=== PATIENT | female | born 1945 | race Caucasian/White ===

== ENCOUNTER → 2021-11-26 | Outpatient (CLI) | payer MEDICARE, BC, SELFPAY ==
--- NOTE | 2021-11-26 13:09 | MRI_ITS ---
STUDY: MRI BRAIN WITHOUT CONTRAST REASON FOR EXAM: Female, 76 years old. Dementia; Parkinson''s disease TECHNIQUE: Standardized multiplanar fat and water weighted pulse sequences were obtained. COMPARISON: None. FINDINGS: Moderate cortical and central atrophy. Moderate chronic microvascular ischemic change periventricular white matter. No evidence of midline shift. No evidence of acute intra or extra-axial hemorrhage. Normal bilateral basal ganglia. Normal thalami. There is no extra-axial fluid accumulation. Normal flow voids within the major intracranial circulation suggesting patency by spin echo criteria. Normal sella turcica, pituitary gland, infundibular stalk, optic chiasm and hypothalamus. Normal tectal plate and pineal gland. Normal midbrain, michi and medulla. Mild cerebellar atrophy. Normal bilateral temporal bones. Normal bilateral internal auditory canals. No demonstrated orbital abnormality, within the constraints of a routine brain study. Fluid right maxillary sinus consistent with sinusitis. Normal calvarium and skull base. Normal visualized soft tissue structures. Normal visualized upper cervical spine. MRI/Brain without Contrast IMPRESSION: Moderate cortical and central atrophy, mild cerebellar atrophy, moderate chronic microvascular ischemic change. Acute right maxillary sinusitis. Electronically Signed: Chandrakant Marroquin MD, REGINA at 15:02 EDT ,
[2021-11-26 13:24] LABS: Hematocrit 42.3 % (37-47); Hemoglobin 14.2 g/dL (12.0-15.0); Mean Corp Hgb Conc 33.6 g/dL (32-36); Mean Corpuscular Hgb 32.9 pg (27.0-32.0); Mean Corpuscular Volume 98.1 fL (81-99); Mean Platelet Vol. 8.9 fl (6.2-12.0); Platelet Count 244 K/mm3 (150-450); RBC Distribution Width SD 46.9 fl (35.1-43.9); Red Blood Count 4.31 M/mm3 (4.2-5.4); White Blood Count 6.3 K/mm3 (4.4-11.0)
[2021-11-26 13:48] LABS: Vitamin B12 1419 pg/mL (211-911)
[2021-11-26 14:25] LABS: AST(SGOT) 18 U/L (15-37); Alanine Aminotransfer ALT/SGPT 13 U/L (13-56); Albumin, Serum 3.9 g/dL (3.2-5.0); Alkaline Phosphatase 54 U/L (45-117); Anion Gap 4 (5-15); BUN 24 mg/dL (7-18); BUN/Creat Ratio 23.1 RATIO (10-20); Calcium,Total 10.2 mg/dL (8.5-10.1); Chloride 107 mmol/L (98-107); Creatinine, Serum 1.04 mg/dL (0.55-1.02); EST Glomerular Filtration Rate 55 mL/min (>60); Est Glom Filt Rate - Afr Amer 66 mL/min (>60); Globulin 4.1 g/dL (2.2-4.2); Glucose 107 mg/dL (74-106); Sodium Level 141 mmol/L (136-145); Thyroid Stim Hormone (TSH) 1.03 uIU/mL (0.358-3.74)
[2021-11-29 08:33] LABS: Vitamin B1, Thiamine 190.2 nmol/L (66.5-200.0)
[2021-11-30 13:51] LABS: Vitamin D 1,25-Dihydroxy 16.9 pg/mL (24.8-81.5)
== END | disposition home or self-care (01) ==
PROVIDERS: PCP Family Medicine; Referring Provider Psychiatry & Neurology Neurology; Visit Provider Psychiatry & Neurology Neurology
DX: F03.90 Unspecified dementia, unspecified severity, without behavioral disturbance, psychotic disturbance, mood disturbance, and anxiety (principal); G20 Parkinson's disease; M85.80 Other specified disorders of bone density and structure, unspecified site
CPT/HCPCS: 36415; 70551; 80053; 82607; 82652; 82746; 84425; 84443; 85027

== ENCOUNTER → 2023-04-20 | Outpatient (CLI) | payer MEDICARE, BC, SELFPAY ==
[2023-04-20 13:07] LABS: Anion Gap 5 (5-15); BUN 21 mg/dL (7-18); BUN/Creat Ratio 23.8 RATIO (10-20); Calcium,Total 9.4 mg/dL (8.5-10.1); Chloride 108 mmol/L (98-107); Creatinine, Serum 0.88 mg/dL (0.55-1.02); EST Glomerular Filtration Rate 66 mL/min (>60); Est Glom Filt Rate - Afr Amer 80 mL/min (>60); Glucose 111 mg/dL (74-106); Potassium 3.8 mmol/L (3.5-5.1); Sodium Level 142 mmol/L (136-145)
[2023-04-23 12:09] LABS: Vitamin D 1,25-Dihydroxy 24.9 pg/mL (24.8-81.5)
== END | disposition home or self-care (01) ==
PROVIDERS: PCP Family Medicine; Referring Provider Psychiatry & Neurology Neurology; Visit Provider Psychiatry & Neurology Neurology
DX: G31.84 Mild cognitive impairment of uncertain or unknown etiology (principal); E55.9 Vitamin D deficiency, unspecified
CPT/HCPCS: 36415; 80048; 82652

== ENCOUNTER → 2024-05-11 | Outpatient (CLI) | payer MEDICARE, BC, SELFPAY ==
[2024-05-11 12:44] LABS: Hematocrit 42.3 % (37-47); Hemoglobin 14.1 g/dL (12.0-15.0); Mean Corp Hgb Conc 33.3 g/dL (32-36); Mean Corpuscular Hgb 32.2 pg (27.0-32.0); Mean Corpuscular Volume 96.6 fL (81-99); Platelet Count 285 K/mm3 (150-450); RBC Distribution Width CV 13.3 % (11.6-14.6); RBC Distribution Width SD 47.7 fl (35.1-43.9); Red Blood Count 4.38 M/mm3 (4.2-5.4); White Blood Count 6.2 K/mm3 (4.4-11.0)
[2024-05-11 14:16] LABS: ALB/GLOB Ratio 1.3 RATIO (0.9-2.4); AST(SGOT) 25 U/L (<=31); Alanine Aminotransfer ALT/SGPT 23 U/L (<=34); Albumin, Serum 4.3 g/dL (3.4-4.8); Alkaline Phosphatase 60 U/L (35-104); Anion Gap 15 (5-15); BUN 21 mg/dL (4-19); BUN/Creat Ratio 20.4 RATIO (10-20); Carbon Dioxide 21.3 mmol/L (21.0-32.0); Chloride 104 mmol/L (98-108); Creatinine, Serum 1.02 mg/dL (0.70-1.20); EST Glomerular Filtration Rate 57 (>60); Globulin 3.3 g/dL (2.2-4.2); Glucose 105 mg/dL (70-99); Potassium 3.9 mmol/L (3.3-5.1); Protein, Total 7.6 g/dL (5.9-8.4); Sodium Level 140 mmol/L (133-145); Total Bilirubin 0.34 mg/dL (0.00-1.30)
[2024-05-16 13:08] LABS: Vitamin D 1,25-Dihydroxy 23.2 pg/mL (24.8-81.5)
== END | disposition home or self-care (01) ==
LOC: MTLAB 09:45
PROVIDERS: PCP Family Medicine; Referring Provider Psychiatry & Neurology Neurology; Visit Provider Psychiatry & Neurology Neurology
DX: G31.84 Mild cognitive impairment of uncertain or unknown etiology (principal); E55.9 Vitamin D deficiency, unspecified
CPT/HCPCS: 36415; 80053; 82652; 84443; 85027

== ENCOUNTER 2024-07-03 13:04 | Emergency (ER) | payer MEDICARE, BC, SELFPAY ==
[2024-07-03 13:05] VITALS: BP 111/57; PULSE 100; RESP 18; TEMP 36.9; O2SAT 100
[2024-07-03 13:18] VITALS: BMI 20.5
--- NOTE | 2024-07-03 13:35 | EX.ED.DYSGE1 ---
HPI History of Present Illness Chief Complaint: Weakness Narrative Narrative: Chief complaint and HPI: Weakness. 78-year-old female with past medical history of HTN, Parkinson's disease, dementia recently placed on donepezil in June presents with daughter for evaluation of weakness. Patient states that her mother was recently diagnosed with dementia. She states for the past 2 weeks she has been having intermittent urinary incontinence/frequency. She states for the past several days she feels like the patient is becoming more cognitive impaired such as talking slower and forgetting things. She feels that she is becoming more weak. She states her mother eats about 2 meals a day. She states for the past 2 days she has not been sleeping well and therefore has been up all night. She states there is cameras in the house which is how she knows. Patient currently states she has no complaints and that she does not know why her daughter brought her here. Daughter states that this is normal for her. Daughter denies any fever, chills, shortness of breath, chest pain, abdominal pain, nausea, vomiting, constipation, diarrhea that she knows of. Review of systems: See HPI Medications: As listed on the chart Allergies: As listed on the chart PFSH: Per chart Vital signs: As listed on the chart. Reviewed. Physical exam: Gen: A&O x3-did not know the president daughter states this is her baseline, she mostly answers yes or no questions and slow to respond-daughter states this is her baseline, NAD Head: Normocephalic, atraumatic Eyes: No sclera icterus, conjunctiva clear, PERRL, EOMI ENT: Moist mucous membranes Neck: Trachea midline, No JVD CV: RRR, no murmurs, no peripheral edema Resp: Lungs CTA BL, no w/r/c GI: Abd soft, non-distended, non-tender, no r/r/g Musc: Full ROM, no deformity Skin: Warm, dry Neuro: Alert, oriented, grossly intact, sensation intact Psych: Cooperative, flat affect [facility] Medical History (Updated 07/03/24 @ 16:[address] Giovanny Chase, ) Vitamin deficiency Osteoporosis Osteopenia Gastrointestinal problem History of UTI Arthritis Seasonal allergies Home Medications ?Medication ?Instructions ?Recorded ?Last Taken ?Type mesalamine 1.2 gram tablet,delayed 1.2 g PO QPM 09/10/21 07/02/24 History release multivitamin 1 tab PO DAILY 09/10/21 Unknown History carbidopa 25 mg-levodopa 100 mg 1 tab PO BID #180 tabs 06/25/24 07/03/24 Rx tablet donepezil 10 mg tablet 10 mg PO QHS #30 tabs 06/25/24 Unknown Rx donepezil 5 mg tablet 5 mg PO QHS #30 tabs 06/25/24 07/01/24 Rx cholecalciferol (vitamin D3) 1,250 1,250 mcg PO WE 07/03/24 Unknown History mcg (50,000 unit) capsule Allergy/AdvReac Type Severity Reaction Status Date / Time No Known Allergies Allergy Verified 07/03/24 13:07 Family History (Updated 09/10/21 @ 11:06 by Barbara Moya) Other Anxiety Arthritis Breast cancer Cancer Diabetes Hypertension Parkinsons disease Suicidal ideations Surgical History (Updated 09/10/21 @ 11:04 by Barbara Moya) History of tonsillectomy Social History (Updated 09/10/21 @ 11:05 by Barbara Moya) Smoking Status: Never smoker alcohol intake: never substance use type: does not use EXAM Physical Exam Const Vital Signs: 07/03/24 13:05 07/03/24 13:36 07/03/24 15:04 Temperature 98.5 F Temperature Source Oral Pulse Rate 100 62 Respiratory Rate 18 18 Respiratory Pattern Normal Blood Pressure 111/57 L 120/72 Blood Pressure Mean 75 88 Pulse Ox 100 97 Oxygen Delivery Method Room Air Room Air MDM MDM MDM Narrative Medical decision making narrative: 78-year-old female with past medical history of HTN, Parkinson's disease, dementia recently placed on donepezil in June presents with daughter for evaluation of weakness. Associated symptom is urinary frequency/incontinence, worsening cognitive impairment, and insomnia. Differential diagnosis includes but is not limited to progressive dementia, progressive Parkinson's, sundowning, UTI, electrolyte abnormality, dehydration, anemia, arrhythmia, suspect less likely ACS. Patient is currently alert and oriented x 3 which is her baseline. She has a flat affect. Low suspicion for any intracranial abnormality. I do not think patient needs a CT of the head. No repeated falls. Daughter in agreement. NS bolus ordered. Laboratory workup ordered including chest x-ray. EKG and chest x-ray reviewed. CBC without leukocytosis or anemia. CMP relatively unremarkable without significant electrolyte abnormality or SHANIQUE. No transaminitis. Magnesium mildly elevated at 2.3. Troponin unremarkable x 2. UA positive for ketones which can be seen in mild dehydration. Patient did receive NS bolus. UA negative for UTI. At this point in time, no clear etiology for patient's symptoms. I suspect that this is progressive Parkinson's with progressive dementia and sundowning. Patient may be developing baseline urinary incontinence. All of the labs are discussed with patient as well as the daughter. She confirmed understanding and was wondering if this was just progression of her disease. Return precautions were explained. She was told to follow-up with PCP and neurology. Daughter feels comfortable with the patient discharging home. She states that they are already looking for a facility for her. EKG: Interpreted by me/EM physician: EKG shows normal sinus rhythm without any acute ischemic changes. Heart rate 71. Diagnostic: Interpreted by me/EM physician: Chest x-ray without effusion, cardiomegaly, pneumothorax, pneumonia. Radiology in agreement. Impression: 1. Generalized weakness 2. Urinary frequency/incontinence 3. Progressive cognitive impairment 4. History of Parkinson's and dementia Lab Data Labs: Laboratory Results - last 24 hr 07/03/24 07/03/24 07/03/24 13:33 14:20 16:04 WBC 7.0 RBC 4.01 L Hgb 12.8 Hct 39.2 MCV 97.8 MCH 31.9 MCHC 32.7 RDW Std Deviation 47.8 H RDW Coeff of Mannie 13.3 Plt Count 274 MPV 9.5 Immature Gran % (Auto) 0.400 Neut % (Auto) 73.8 H Lymph % (Auto) 16.1 L [place] % (Auto) 6.7 Eos % (Auto) 2.0 Baso % (Auto) 1.0 Absolute Neuts (auto) 5.2 Absolute Lymphs (auto) 1.13 Nucleated RBC % 0 Sodium 138 Potassium 4.2 Chloride 104 Carbon Dioxide 22.8 Anion Gap 11 BUN 23 H Creatinine 1.03 Estim Creat Clear Calc 36.18 L Est GFR (MDRD) Non-Af 56 L BUN/Creatinine Ratio 22.6 H Glucose 124 H Calcium 9.8 Magnesium 2.3 H Total Bilirubin 0.41 AST 28 ALT < 5 Alkaline Phosphatase 52 Troponin T High Sens 22 H Troponin T Hi Sens 2 Hr 23 H Total Protein 7.4 Albumin 4.2 Globulin 3.2 Albumin/Globulin Ratio 1.3 Urine Color Yellow Urine Clarity Clear Urine pH 5.0 Ur Specific [place] 1.025 Urine Protein 15 H Urine Glucose (UA) Normal Urine Ketones 5 H Urine Occult Blood 50 H Urine Nitrite Negative Urine Bilirubin Negative Urine Urobilinogen Normal Ur Leukocyte Esterase Negative Urine RBC 0-5 SEEN Urine WBC 0 SEEN Ur Squamous Epith Cells 0 SEEN Urine Bacteria 0 SEEN Urine Mucus 0 SEEN Radiography Diagnostic Testing: Clinical Impression(s) from Imaging Studies Chest X-Ray 07/03/24 14:10 IMPRESSION: No acute abnormality is seen. Reading Location: [facility] Discharge Plan Triage Chief Complaint: Weakness ED Provider: Giovanny Chase Dx/Rx/DC Orders Clinical Impression: Dementia, Generalized weakness Instructions: Understanding Dementia, Dementia Caregiver Tips, Dementia Caregivers Plan Future, ED Weakness Uncertain Cause Prescriptions: No Action mesalamine 1.2 gram tablet,delayed release (DR/EC) 1.2 g PO QPM multivitamin Tablet 1 tab PO DAILY donepezil 5 mg tablet 5 mg PO QHS Qty: 30 0RF donepezil 10 mg tablet 10 mg PO QHS Qty: 30 5RF Patient Comments: WILL START ON 07/25/24 Rx Instructions: Begin after completing one month of treatment of donepezil 5mg nightly carbidopa-levodopa 25-100 mg tablet 1 tab PO BID Qty: 180 1RF cholecalciferol (vitamin D3) 1,250 mcg (50,000 unit) capsule 1,250 mcg PO WE Primary Care Provider: Randy Tamez Referrals: Randy Tamez MD [Primary Care Provider] - 3-5 Days Activity Restrictions/Additional Instructions: Follow-up with primary care physician. Follow-up with neurologist for dementia. At this point in time, no reason for patient's symptoms. Return back to the ED if symptoms change or worsen. Print Language: [place] Disposition Disposition: Home, Self Care
--- NOTE | 2024-07-03 13:36 | EKG12_ITS ---
Test Reason : Blood Pressure : */* mmHG Vent. Rate : 71 BPM Atrial Rate : 71 BPM P-R Int : 120 ms QRS Dur : 72 ms QT Int : 394 ms P-R-T Axes : 66 -24 25 degrees QTcB Int : 428 ms Normal sinus rhythm Normal ECG Confirmed by VIVIANA DOUGLASS, FLORESITA ([id number]), fashion editor PATTIE MEIER ([id number]) on 07/04/2024 10:30:08 AM Referred By: FRANCISCO/VARSHA Confirmed By: FLORESITA MICHELLE MD
[2024-07-03] MEDS: 0.9% Normal Saline (1000mL) 1,000 ML 1000 ML IV (14:08)
--- NOTE | 2024-07-03 14:10 | RAD_ITS ---
PROCEDURE: CHEST PA AND LATERAL 07/03/2024 REASON FOR EXAM: WEAKNESS TECHNIQUE: Frontal and lateral views of the chest. COMPARISON: None FINDINGS: Hardware: EKG electrodes are seen. Heart: The heart size is normal. Mediastinum: Atherosclerotic calcification of the aortic arch. Lungs: No acute infiltrate is seen. Bones: Degenerative changes are identified within the thoracic spine. Increased kyphosis. RAD/Chest PA and Lateral IMPRESSION: No acute abnormality is seen. Reading Location: [place] [id number]
[2024-07-03 14:13] LABS: Absolute Lymphocyte Count 1.13 X10^3/uL (0.83-4.51); Absolute Neutrophil Count 5.2 X10^3/uL (2.0-7.7); Basophil# 0.07 X10^3/uL; Eosinophil# 0.14 X10^3/uL; Hematocrit 39.2 % (37-47); Hemoglobin 12.8 g/dL (12.0-15.0); Lymphocyte # 1.13 X10^3/ul (0.83-4.51); Lymphocyte % 16.1 % (19-41); Mean Corp Hgb Conc 32.7 g/dL (32-36); Mean Corpuscular Hgb 31.9 pg (27.0-32.0); Mean Corpuscular Volume 97.8 fL (81-99); Mean Platelet Vol. 9.5 fl (6.2-12.0); Monocyte# 0.47 X10^3/uL; Monocyte% 6.7 % (0-10); NRBC Flagged by Analyzer 0 % (0-5); Neutrophil % 73.8 % (47-70); Platelet Count 274 K/mm3 (150-450); RBC Distribution Width CV 13.3 % (11.6-14.6); RBC Distribution Width SD 47.8 fl (35.1-43.9); Red Blood Count 4.01 M/mm3 (4.2-5.4)
[2024-07-03 14:26] LABS: Bacteria 0 SEEN /hpf (None Seen); Mucous, Urine 0 SEEN /hpf (<or=2+); Squamous Epithelial Cells - UA 0 SEEN /hpf (5-10); White Blood Cells 0 SEEN /hpf (0-5)
[2024-07-03 14:31] LABS: Color, Urine Yellow (Yellow); Glucose, Dipstick Normal (Normal); Ketone-Dipstick 5 mg/dl (Negative); Leukocyte Esterase-Dipstick Negative /ul (Negative); Nitrite-Dipstick Negative (Negative); Occult Blood-Urine 50 /ul (Negative); Protein-Dipstick 15 mg/dl (Negative); Specific Gravity, Urine 1.025 (1.002-1.030); Urine Bilirubin Dipstick Negative (Negative); Urine Clarity Clear (Clear); Urine Urobilinogen Normal (Normal)
[2024-07-03 14:33] LABS: Troponin T High Sensitivity 22 ng/L (<=14)
[2024-07-03 14:36] LABS: Magnesium 2.3 mg/dL (1.5-2.2)
[2024-07-03 14:43] LABS: Red Blood Cells-Urine 0-5 SEEN /hpf (0-5)
[2024-07-03 15:04] VITALS: BP 120/72; PULSE 62; RESP 18; O2SAT 97
[2024-07-03 15:15] LABS: ALB/GLOB Ratio 1.3 RATIO (0.9-2.4); AST(SGOT) 28 U/L (<=31); Alanine Aminotransfer ALT/SGPT < 5 U/L (<=34); Albumin, Serum 4.2 g/dL (3.4-4.8); Alkaline Phosphatase 52 U/L (35-104); Anion Gap 11 (5-15); BUN 23 mg/dL (4-19); BUN/Creat Ratio 22.6 RATIO (10-20); Calcium,Total 9.8 mg/dL (7.6-11.0); Carbon Dioxide 22.8 mmol/L (21.0-32.0); Chloride 104 mmol/L (98-108); Creatinine, Serum 1.03 mg/dL (0.70-1.20); EST Glomerular Filtration Rate 56 (>60); Estimated Creatinine Clearance 36.18 ml/min (50-250); Globulin 3.2 g/dL (2.2-4.2); Glucose 124 mg/dL (70-99); Potassium 4.2 mmol/L (3.3-5.1); Protein, Total 7.4 g/dL (5.9-8.4); Sodium Level 138 mmol/L (133-145); Total Bilirubin 0.41 mg/dL (0.00-1.30)
[2024-07-03 16:39] LABS: Troponin T High Sens 2 HR 23 ng/L (<=14)
[2024-07-03 17:36] VITALS: BP 149/82; PULSE 89; RESP 16; TEMP 36.7; O2SAT 100
== END 2024-07-03 17:37 | disposition home or self-care (01) ==
PROVIDERS: Emergency Provider Surgery; PCP Family Medicine; Visit Provider Surgery
DX: G20.A1 Parkinson's disease without dyskinesia, without mention of fluctuations (principal); F02.80 Dementia in other diseases classified elsewhere, unspecified severity, without behavioral disturbance, psychotic disturbance, mood disturbance, and anxiety; R53.1 Weakness; R35.0 Frequency of micturition; R32 Unspecified urinary incontinence; I10 Essential (primary) hypertension; Z79.899 Other long term (current) drug therapy
CPT/HCPCS: 71046; 80053; 81001; 83735; 84484; 85025; 93005; 96360; 99285; P9612; A4216